=== PATIENT | male | born 1945 | race Caucasian/White ===

== ENCOUNTER 2019-04-03 09:46 | Emergency (ER) | payer MEDICARE, OTHER ==
[2019-04-03 09:57] VITALS: TEMP 97.8; BMI 23.5
--- NOTE | 2019-04-03 10:03 | PDOC ---
History of Present Illness - General Chief Complaint: Pain Stated Complaint: ABD PAIN Time Seen by Provider: 04/03/19 10:02 History Source: Patient, Family, Glass Wool Blanket Machine Feeder Used, Old Records Exam Limitations: No Limitations, Language Barrier (Bangladeshi) - History of Present Illness Initial Comments: 04/03/19 10:02 Dave De Los Santos is a 73 year old Bangladeshi-speaking male with PMH PAD s/p 10x LLE bypass procedures last in 2015 at [facility] on Coumadin presenting with 2 days of acute onset abdominal pain. Patient reports that starting 2 days ago he began to have brief, sharp episodes of 7/10 RUQ and epigastric pain lasting 1 minute long that come and go sporadically. Not associated with with eating or position. Denies recent trauma. Denies abdominal surgeries. Denies any nausea or vomiting, diarrhea, constipation. Denies any prior cardiac disease, liver disease. Denies chest pain, fever, chills, urinary symptoms, dizziness, palpitations, headache, vision changes. Past History - Past Medical History Allergies/Adverse Reactions: Allergies Allergy/AdvReac Type Severity Reaction Status Date / Time No Known Drug Allergies Allergy Verified 04/03/19 09:51 Home Medications: Ambulatory Orders Warfarin Na [Coumadin] 3 mg PO DAILY 01/03/15 Zolpidem Tartrate 10 mg PO HS PRN 01/03/15 Ciprofloxacin [Cipro -] 500 mg PO Q12H 7 Days #14 tablet 04/03/19 metroNIDAZOLE [Metronidazole] 500 mg PO TID 7 Days #21 tablet 04/03/19 Anemia: No Asthma: No Cancer: No Cardiac Disorders: No CVA: No COPD: No CHF: No Dementia: No Diabetes: No GI Disorders: No Disorders: No HTN: Yes Hypercholesterolemia: No Liver Disease: No Seizures: No Thyroid Disease: No - Surgical History Abdominal Surgery: No Appendectomy: No Cardiac Surgery: No Cholecystectomy: No Lung Surgery: No Neurologic Surgery: No Orthopedic Surgery: No - Immunization History Immunization Up to Date: Yes - Psycho Social/Smoking Cessation Hx Smoking History: Current every day smoker Have you smoked in the past 12 months: Yes Number of Cigarettes Smoked Daily: 10 If you are a former smoker, when did you quit?: months ago Information on smoking cessation initiated: No 'Breaking Loose' booklet given: 01/05/15 Hx Alcohol Use: No Drug/Substance Use Hx: No Substance Use Type: None Hx Substance Use Treatment: No Review of Systems - Review of Systems Able to Perform ROS?: Yes Constitutional: No: Chills, Fever, Weakness HEENTM: No: Eye Pain, Nose Pain, Hearing Loss, Throat Pain Respiratory: No: Cough, Shortness of Breath, Wheezing Cardiac (ROS): No: Chest Pain, Edema, Irregular Heart Rate, Lightheadedness, Palpitations, Syncope ABD/GI: No: Constipated, Diarrhea, Difficulty Swallowing, Nausea, Poor Appetite , Poor Fluid Intake, Vomiting : No: Burning, Dysuria, Discharge, Frequency, Flank Pain, Hematuria, Incontinence, Pain Musculoskeletal: No: Back Pain, Muscle Pain, Muscle Weakness Integumentary: No: Symptoms Reported Neurological: No: Headache, Numbness, Paresthesia, Weakness, Unsteady Gait Endocrine: No: Symptoms Reported Hematologic/Lymphatic: No: Symptoms Reported All Other Systems: Reviewed and Negative *Physical Exam - Vital Signs Last Vital Signs Temp Pulse Resp BP Pulse Ox 97.8 F 66 18 169/84 98 04/03/19 09:52 04/03/19 09:52 04/03/19 09:52 04/03/19 09:52 04/03/19 09:52 - Physical Exam General Appearance: Yes: Nourished, Appropriately Dressed, Thin. No: Apparent Distress HEENT: positive: EOMI, BARB, Normal ENT Inspection, Normal Voice, Symmetrical, Pharynx Normal, Hearing Grossly Normal. negative: Scleral Icterus (R), Scleral Icterus (L), Pharyngeal Erythema, Tonsillar Exudate, Tonsillar Erythema Neck: positive: Trachea midline, Normal Thyroid, Supple. negative: Tender, Rigid, Lymphadenopathy (R), Lymphadenopathy (L), Tender lateral, Tender midline Respiratory/Chest: positive: Lungs Clear, Normal Breath Sounds. negative: Chest Tender, Respiratory Distress, Accessory Muscle Use, Crackles, Rales, Rhonchi, Stridor, Wheezing Cardiovascular: positive: Regular Rhythm, Regular Rate. negative: Murmur Gastrointestinal/Abdominal: positive: Normal Bowel Sounds, Tender (RUQ tenderness with positive Herrera sign), Flat, Soft, Organomegaly (enlarged liver) , Rebound (RUQ), Hernia (umbilical). negative: Guarding Musculoskeletal: positive: Normal Inspection. negative: CVA Tenderness Extremity: positive: Normal Capillary Refill, Normal Inspection. negative: Normal Range of Motion, Tender, Pelvis Stable Integumentary: positive: Normal Color, Dry, Warm Neurologic: positive: Fully Oriented, Alert, Normal Mood/Affect, Normal Response ED Treatment Course - LABORATORY CBC & Chemistry Diagram: 04/03/19 11:00 04/03/19 11:00 Medical Decision Making - Medical Decision Making 04/03/19 13:24 Patient has history of PAD s/p multiple bypass procedures presenting with acute onset episodes of RUQ pain intermittently, not in pain at this time but tender on palpation with positive Herrera sign, VS stable, afebrile, non-tachycardic. Concerned for acute GB pathology, pancreatitis, atypical CT. - CMP/CBC for eval lytes/infection/liver enzymes - ECG/CXR/CP for eval heart - lactate for eval mesenteric ischemia - 4mg morphine for pain - UA/UC for eval UTI - RUQ US for eval GB pathology - low threshold to CTAP with contrast for abdominal pain if US negative 04/03/19 13:33 Labs notable for: - CMP WNL - CBC WNL - trop 0.02 - UA no evidence of UTI Prelim read of RUQ US shows no acute pathology. Getting CTAP with IV contrast, Cr 1.0, no documented contrast allergy. 04/03/19 15:48 CTAP shows evidence of colitis at the hepatic flexure. RUQ US no evidence of cholecystitis, hepatic lesion possibly hemangioma. ECG shows sinus bradycardia HR 56 QRS 90 QTc 413 no TWI or ischemic changes. Patient has no fever, no WBC elevation, non-tender at this time. Stable to be discharged home with close GI f/u and cipro/flagyl for colitis. 04/03/19 19:36 Discharge - Discharge Information Problems reviewed: Yes Clinical Impression/Diagnosis: Abdominal pain Qualifiers: Abdominal location: right upper quadrant Qualified Code(s): R10.11 - Right upper quadrant pain Condition: Stable Disposition: HOME - Additional Discharge Information Prescriptions: Ciprofloxacin [Cipro -] 500 mg PO Q12H 7 Days #14 tablet metroNIDAZOLE [Metronidazole] 500 mg PO TID 7 Days #21 tablet - Follow up/Referral Referrals: Doron Pate MD [Primary Care Provider] - Scott Briscoe MD [Staff Physician] - - Patient Discharge Instructions Patient Printed Discharge Instructions: DI for Colitis Additional Instructions: Today you were evaluated for abdominal pain. Your CT scan shows that you have colitis, an infection in your colon. We are treating you with antibiotics. You need to follow-up with a banking consultant for further evaluation, because there is a small change this is cancer. Please follow-up with Dr. Pate in the next week. If you experience worsening abdominal pain, fever, diarrhea, or blood in your stool, please return to the emergency room. - Post Discharge Activity
[2019-04-03] MEDS ORDERED: morphine CARPU-JECT 4 MG/1 ML DISP.SYRIN IVPUSH ONE (10:49)
[2019-04-03] MEDS ORDERED: morphine SULFATE 4 MG/ML VIAL ONE (11:11)
[2019-04-03 11:13] LABS: BASO % 0.8 % (0-2.0); EOS % 3.4 % (0-4.5); HEMATOCRIT 46.8 % (35.4-49); HEMOGLOBIN 15.7 GM/dL (11.7-16.9); LYMPH % 23.8 % (8-40); MCH 29.9 pg (25.7-33.7); MCHC 33.4 g/dl (32.0-35.9); MEAN CELL VOLUME 89.5 fl (80-96); MEAN PLT VOLUME 9.5 fl (7.5-11.1); MONO % 5.9 % (3.8-10.2); NEUT % 66.1 % (42.8-82.8); PLATELET COUNT 180 K/MM3 (134-434); RBC 5.23 M/mm3 (4.00-5.60); RDW 15.2 % (11.9-15.9); WHITE BLOOD COUNT 7.5 K/mm3 (4.0-10.0)
[2019-04-03 11:37] LABS: INR 1.18 (0.83-1.09); PROTHROMBIN TIME (PATIENT) 13.9 SEC (9.7-13.0)
[2019-04-03 11:40] LABS: ACTIVATED PTT 32.1 SECONDS (25.2-36.5)
[2019-04-03 11:44] LABS: ALBUMIN 3.9 g/dl (3.4-5.0); BILIRUBIN,TOTAL 0.6 mg/dL (0.2-1); BLOOD UREA NITROGEN 10.1 mg/dL (7-18); CALCIUM 8.8 mg/dL (8.5-10.1); POTASSIUM 4.5 mmol/L (3.5-5.1); TOT PROT 8.1 g/dl (6.4-8.2)
[2019-04-03 11:45] LABS: URINE APPEARANCE CLEAR; URINE BILIRUBIN NEGATIVE (NEGATIVE); URINE COLOR YELLOW; URINE GLUCOSE (UA) NEGATIVE (NEGATIVE); URINE KETONE NEGATIVE (NEGATIVE); URINE LEUK ESTERASE NEGATIVE (NEGATIVE); URINE NITRITE NEGATIVE (NEGATIVE); URINE PROTEIN TRACE (NEGATIVE); URINE UROBILINOGEN 0.2 mg/dL (0.2-1.0)
--- NOTE | 2019-04-03 13:09 | PDOC ---
Documentation entered by Osvaldo Lora SCRIBE, acting as scribe for Johann Zapata MD. Johann Zapata MD: This documentation has been prepared by the Geno ngo Nirvannie, SCRIBE, under my direction and personally reviewed by me in its entirety. I confirm that the documentation accurately reflects all work, treatment, procedures, and medical decision making performed by me. Attending Attestation - Resident Resident Name: DhruvkaylaNate - ED Attending Attestation I have performed the following: I have examined & evaluated the patient, The case was reviewed & discussed with the resident, I agree w/resident's findings & plan, Exceptions are as noted - HPI HPI: 04/03/19 11:41 CC: RUQ/RLQ abdominal pain. HPI: The patient is a 73 year old male, with a significant past medical history of HTN, who presents to the emergency department with 3 days of 8/10 RUQ and RLQ abdominal pain with associated chills. He denies any previous abdominal surgeries. He denies any recent headache or dizziness. He denies any recent nausea, vomit, diarrhea or constipation. He denies any recent chest pain or shortness of breath. He denies any recent dysuria, frequency, urgency or hematuria. Allergies: NKDA Primary Care Physician: Dr. Pate - Physicial Exam PE: 04/03/19 11:42 Vitals: Triage vital signs reviewed General Appearance: No acute distress, well nourished, well developed Head: Atraumatic Chest Wall: Nontender Cardiac: Regular rate and rhythm, no murmurs, no rubs, no gallops Lungs: Clear to auscultation bilateral, good air movement bilaterally Abdomen: +Maximal tenderness at RUQ. Soft, nondistended. Extremities: Full range of motion to all extremities. Skin: Warm and dry, no rashes or lesions, no rash, no petechiae Neuro: AOX3; Cranial Nerves 2-12 grossly intact. Psych: Normal mood, normal affect - Medical Decision Making 04/03/19 13:31 73 years old with right-sided abdominal discomfort right upper quadrant greater than right lower quadrant, will check ultrasound pain meds hydration labs observe and reassess 04/03/19 16:35 CAT scan with evidence of right hepatic flexure colitis Reevaluation well-appearing no apparent distress repeat abdominal exam benign patient feels much better tolerating fluids. Findings discussed with patient's primary care provider We will treat with p.o. antibiotics patient will follow-up with his primary care provider and gastroenterology as an outpatient
[2019-04-03 16:12] VITALS: BP 185/91; PULSE 77
--- NOTE | 2019-04-04 14:34 | EKG ---
Test Reason : Blood Pressure : / mmHG Vent. Rate : 056 BPM Atrial Rate : 056 BPM P-R Int : 116 ms QRS Dur : 090 ms QT Int : 428 ms P-R-T Axes : 036 -09 027 degrees QTc Int : 413 ms SINUS BRADYCARDIA VOLTAGE CRITERIA FOR LEFT VENTRICULAR HYPERTROPHY ABNORMAL ECG Confirmed by MD MYESHA, YOLANDA ([id number]) on 04/04/2019 2:33:55 PM Referred By: Confirmed By:YOLANDA BRUNNER MD
== END 2019-04-03 16:45 | disposition home or self-care (01) ==
LOC: JER 09:46
PROC: 3E033NZ Introduction of Analgesics, Hypnotics, Sedatives into Peripheral Vein, Percutaneous Approach (ICD-10-PCS; principal; 2019-04-03)
DX: R10.11 Right upper quadrant pain (principal)
CPT/HCPCS: 36415; 74177-TC; 76705-TC; 80053; 81003; 82550; 83605; 83690; 84484; 85025; 85610; 85730; 87086; 93005; 93010; 96374; 99283-25; Q9967

== ENCOUNTER 2024-02-14 10:35 | Emergency (ER) | payer MEDICARE, OTHER ==
[2024-02-14 10:53] VITALS: BP 128/75; PULSE 76; RESP 16; TEMP 98.2; BMI 21.9
[2024-02-14] MEDS ORDERED: IBUPROFEN 600 MG TABLET (FP) PO ONE (12:42)
[2024-02-14] MEDS: IBUPROFEN 600 MG TABLET (FP) PO ONE (12:44)
== END 2024-02-14 13:43 | disposition home or self-care (01) ==
LOC: JERFT 10:35
DX: M25.511 Pain in right shoulder (principal)
CPT/HCPCS: 73030-TC-RT-FY; 99283-25